=== PATIENT | male | born 1960 | race Two or more races ===

== ENCOUNTER → 2019-10-08 | Emergency (ER) | payer BC, OTHER ==
[~2019-10-08] VITALS: Ht 165.1 cm; Wt 89.8 kg
[2019-10-08 21:20] VITALS: BP 140/80
== END | disposition home or self-care (01) ==
LOC: ER 18:49
DX: K64.4 Residual hemorrhoidal skin tags (principal); K64.8 Other hemorrhoids

== ENCOUNTER 2021-03-08 08:12 | Inpatient (IN) | payer BC ==
[~2021-03-08] VITALS: Ht 165.1 cm; Wt 85.8 kg
[2021-03-08 08:47] LABS: Basophils # (auto) 0 10 ^3/uL (0-0.2); Basophils % (auto) 0.3 % (0.0-2.0); Eosinophils # (auto) 0.3 10 ^3/uL (0-0.8); Eosinophils % (auto) 3.5 % (0.0-7.0); Hematocrit 43.1 % (41.0-53.0); Hemoglobin 14.9 g/dL (13.5-17.5); Lymphocytes # (auto) 1.9 10 ^3/uL (0.4-5.4); Lymphocytes % (auto) 24.3 % (10.0-50.0); Mean Corpuscular Hemoglobin 30.7 pg (28.0-32.0); Mean Corpuscular Hgb Conc. 34.6 g/dL (32.0-36.0); Mean Corpuscular Volume 88.8 fL (80.0-100.0); Monocytes # (auto) 0.5 10 ^3/uL (0-1.3); Neutrophils % (auto) 64.9 % (37.0-80.0); Red Blood Cells 4.86 10^6/uL (4.5-5.90); Red Cell Distribution Width 13.5 % (11.8-14.3); White Blood Cell 7.7 10^3/uL (4.4-10.8)
[2021-03-08 08:59] LABS: INR 1.02 (0.9-1.15)
[2021-03-08 09:00] LABS: Alanine Aminotransferase 27 U/L (16-61); Albumin 3.4 g/dL (3.4-5.0); Anion Gap 7 (5-15); Aspartate Aminotransferase 41 U/L (15-37); BUN/Creatinine Ratio 16.3; Blood Urea Nitrogen 15 mg/dL (7-18); Calcium 8.1 mg/dL (8.5-10.1); Carbon Dioxide 20 mmol/L (21-32); Chloride 109 mmol/L (98-107); GFR African American 109 mL/min; GFR Non-African American 90 mL/min; Glucose 90 mg/dL (74-106); Potassium 5.4 mmol/L (3.5-5.1); Sodium 136 mmol/L (136-145)
[2021-03-08] MEDS ORDERED: IBUPROFEN 800 MG TAB PO ONE (09:00)
[2021-03-08 09:02] LABS: Alkaline Phosphatase 95 U/L (45-117); Bilirubin, Total 0.8 mg/dL (0.2-1.0)
[2021-03-08] MEDS ORDERED: InsuLIN REG 1unit/0.01ml Soln (100units/ml) IV ONE ×2 (12:45→13:30)
[2021-03-08] MEDS ORDERED: ALBUTEROL SULF 2.5 MG/0.5ML(0.5%) NEB SOLN NEB ONE ×2 (12:45→13:30)
[2021-03-08] MEDS ORDERED: SODIUM ZIRCONIUM CYCL 10 GM PAK PO ONE ×2 (12:45→13:30)
[2021-03-08] MEDS ORDERED: SODIUM BICARBONATE 8.4% INJ 50ML SYRINGE IV ONE ×2 (12:45→13:30)
[2021-03-08] MEDS ORDERED: CALCIUM GLUC 1,000mg/50ml-NS 50 ML IV ONE (12:45)
[2021-03-08] MEDS ORDERED: DEXTROSE (50%) 50ML SYRG IV ONE ×2 (12:45→13:30)
[2021-03-08] MEDS ORDERED: MORPHINE SULF INJ 2 MG/ML SYRINGE 1ML IV PRN ×3 (13:30→15:00)
[2021-03-08] MEDS ORDERED: CALCIUM CHL 100MG/ML 1,000 MG in D5W 5% 100 ML IV ONE (13:30)
[2021-03-08] MEDS ORDERED: NITROGLYCERIN 0.4 MG SL TAB SL PRN ×2 (13:30→15:00)
[2021-03-08] MEDS ORDERED: ENOXAPARIN SOD 100 MG/1 ML SYRINGE SC ONE (13:30)
[2021-03-08] MEDS ORDERED: SODIUM CHLORIDE 0.9% 1,000 ML IV ONE (13:30)
[2021-03-08] MEDS ORDERED: FUROSEMIDE 40 MG/4 ML VIAL IV ONE (13:30)
[2021-03-08] MEDS ORDERED: MULT-928 PO (14:19)
[2021-03-08] MEDS ORDERED: ASPI-498 PO (14:20)
[2021-03-08] MEDS ORDERED: ACET1CAP14 PO (14:20)
[2021-03-08] MEDS ORDERED: POM (14:20)
[2021-03-08] MEDS ORDERED: NAPROXEN 500 MG TAB PO PRN (14:45)
[2021-03-08] MEDS ORDERED: HYDROcodone-ACET 5/325MG TAB PO PRN (15:00)
[2021-03-08] MEDS ORDERED: ALUM & MAG HYDROX-SIMETH LIQ(MAALOX) 30 ML PO PRN (15:00)
[2021-03-08] MEDS ORDERED: DOCUSATE SOD 100 MG CAP PO PRN (15:00)
[2021-03-08] MEDS ORDERED: LORazepam 0.5 MG TAB PO PRN (15:00)
[2021-03-08] MEDS ORDERED: ONDANSETRON HCL 4 MG/2 ML VIAL IV PRN (15:00)
[2021-03-08] MEDS ORDERED: ATORVASTATIN 20 MG TAB PO ONE (15:45)
[2021-03-08 16:26] LABS: Potassium 3.2 mmol/L (3.5-5.1)
[2021-03-08 16:30] LABS: Cholesterol 174 mg/dL (< 200); HDL Cholesterol 61 mg/dL (40-59); LDL Cholesterol 96 mg/dL (< 100); Triglycerides 70 mg/dL (< 150)
[2021-03-08] MEDS ORDERED: POTASSIUM CHL 20 Meq TABLET PO ONE (19:00)
[2021-03-08 23:38] VITALS: BP 126/82
[2021-03-09] MEDS: ENOXAPARIN SOD 60 MG/0.6 ML SYRINGE SC SCH ×2 (00:01→10:56)
[2021-03-09 00:55] VITALS: BP 126/82
[2021-03-09 05:00] VITALS: BP 117/73
[2021-03-09 09:05] VITALS: BP 126/67
[2021-03-09] MEDS ORDERED: ASPirin 81 mg TAB PO SCH (10:00)
[2021-03-09 10:47] LABS: Urine Bacteria NONE SEEN /hpf (None Seen); Urine Blood Negative /uL (Negative); Urine Specific Gravity 1.022 (1.001-1.035); Urine WBC 2 /hpf (0 - 3)
[2021-03-09 10:56] LABS: Amphetamine Screen, Urine NEGATIVE (NEGATIVE); Barbiturate Scree,Urine NEGATIVE (NEGATIVE); Benzodiazephine Screen, Urine NEGATIVE (NEGATIVE); Cannabinoid Screen, Urine NEGATIVE (NEGATIVE); Cocaine Screen, Urine NEGATIVE (NEGATIVE); Opiate Scree,Urine NEGATIVE (NEGATIVE); Phencyclidine Screen, Urine NEGATIVE (NEGATIVE)
[2021-03-09] MEDS ORDERED: APIX5TAB PO (12:19)
[2021-03-09 14:19] VITALS: BP 140/77
[2021-03-09] MEDS ORDERED: ATORVASTATIN 20 MG TAB PO SCH (22:00)
== END 2021-03-09 14:55 | disposition home or self-care (01) | DRG 301 ==
LOC: ER 08:12 → TELE 13:24 → TELE-WESTW 23:03
PROVIDERS: ADMIT Hospitalist; ATTEND Internal Medicine
DX: I82.813 Embolism and thrombosis of superficial veins of lower extremities, bilateral (principal); E78.5 Hyperlipidemia, unspecified; E66.01 Morbid (severe) obesity due to excess calories; E87.5 Hyperkalemia; I10 Essential (primary) hypertension; I87.8 Other specified disorders of veins; I83.12 Varicose veins of left lower extremity with inflammation; I83.11 Varicose veins of right lower extremity with inflammation; Z68.31 Body mass index [BMI] 31.0-31.9, adult; Z20.822 Contact with and (suspected) exposure to COVID-19
CPT/HCPCS: 36415; 80053; 80061; 80307; 81001; 82550; 83036; 83615; 84132; 84484; 85025; 85610; 85652; 86141; 87040; 87086; 87426; 93970; 94644; 96374; 96375; G0378; J7060

== ENCOUNTER 2021-07-20 11:55 | Emergency (ER) | payer BC ==
[~2021-07-20] VITALS: Ht 165.1 cm; Wt 83.5 kg
[~2021-07-20 11:55] MED LIST: ACET1CAP14 PO; APIX5TAB PO; MULT-928 PO; POM
[2021-07-20 15:31] VITALS: BP 126/79
== END 2021-07-20 15:38 | disposition home or self-care (01) ==
LOC: ER 11:55
DX: J02.9 Acute pharyngitis, unspecified (principal); Z20.822 Contact with and (suspected) exposure to COVID-19
CPT/HCPCS: 36415; 71046; 87426

== ENCOUNTER → 2021-08-30 | Outpatient (CLI) | payer BC | END | disposition home or self-care (01) | LOC: LAB 09:24 | PROVIDERS: ATTEND Urology | DX: N40.0 Benign prostatic hyperplasia without lower urinary tract symptoms (principal) | CPT/HCPCS: 84153 ==

== ENCOUNTER 2021-10-31 12:14 | Day surgery (SDC) | payer BC ==
[2021-10-30 08:43] LABS: Basophils # (auto) 0 10 ^3/uL (0-0.2); Basophils % (auto) 0.6 % (0.0-2.0); Eosinophils # (auto) 0.2 10 ^3/uL (0-0.8); Eosinophils % (auto) 3.8 % (0.0-7.0); Hematocrit 45.2 % (41.0-53.0); Hemoglobin 15.4 g/dL (13.5-17.5); Lymphocytes # (auto) 1.9 10 ^3/uL (0.4-5.4); Mean Corpuscular Hemoglobin 30.2 pg (28.0-32.0); Mean Corpuscular Volume 88.6 fL (80.0-100.0); Monocytes # (auto) 0.3 10 ^3/uL (0-1.3); Monocytes % (auto) 5.5 % (0.0-12.0); Neutrophils # (auto) 3.3 10 ^3/uL (1.6-8.6); Neutrophils % (auto) 57.1 % (37.0-80.0); Nucleated Red Blood Cells % 0.1 %; Red Cell Distribution Width 14.1 % (11.8-14.3); White Blood Cell 5.8 10^3/uL (4.4-10.8)
[2021-10-30 09:00] LABS: Partial Thromboplastin Time 26.7 sec (23.6-33.0)
[2021-10-30 09:17] LABS: Albumin 3.8 g/dL (3.4-5.0); Calcium 8.9 mg/dL (8.5-10.1); Potassium 4.4 mmol/L (3.5-5.1)
[2021-10-30 09:19] LABS: BUN/Creatinine Ratio 14.1; Bilirubin, Total 0.4 mg/dL (0.2-1.0)
[~2021-10-31] VITALS: Ht 160 cm; Wt 83.5 kg
[~2021-10-31 12:14] MED LIST changes: -ACET1CAP14 PO; +ASPI1TAB20 PO; +LOSA25TA38 PO; +METF-370 PO; -POM; +SILD50TA42 PO
[2021-10-31] MEDS ORDERED: diphenhdrAMINE HCL 50 MG/1 ML VL ONE (12:41)
[2021-10-31] MEDS ORDERED: SODIUM CHLORIDE LOCK 10 ML ONE (12:42)
[2021-10-31] MEDS ORDERED: fentaNYL CITRATE 100 MCG/2 ML VL ONE (12:42)
[2021-10-31] MEDS: MIDAZOLAM HCL 5 MG/ML-1ML VIAL ONE ×2 (13:47→13:56)
[2021-10-31 14:50] VITALS: BP 127/80
== END 2021-10-31 15:05 | disposition home or self-care (01) ==
LOC: GI 12:14
PROVIDERS: ATTEND Internal Medicine Gastroenterology
DX: K59.00 Constipation, unspecified (principal); K57.30 Diverticulosis of large intestine without perforation or abscess without bleeding; K64.8 Other hemorrhoids; K52.9 Noninfective gastroenteritis and colitis, unspecified; K63.89 Other specified diseases of intestine; I10 Essential (primary) hypertension; E11.9 Type 2 diabetes mellitus without complications; Z98.890 Other specified postprocedural states; Z79.899 Other long term (current) drug therapy; Z82.49 Family history of ischemic heart disease and other diseases of the circulatory system; Z80.1 Family history of malignant neoplasm of trachea, bronchus and lung
CPT/HCPCS: 36415; 45380; 80053; 82962; 85025; 85610; 85730; 88305; C9803; J1200; J2250; J3010; J7030; U0003; 49083; 76942; 99152

== ENCOUNTER → 2023-08-07 | Outpatient (CLI) | payer BC ==
[~2023-08-07] MED LIST changes: +LOSA25TA15 PO; -LOSA25TA38 PO
== END | disposition home or self-care (01) ==
LOC: LAB 12:29
PROVIDERS: ATTEND Internal Medicine
DX: K60.4 Rectal fistula (principal)
CPT/HCPCS: 36415; 82565; 84520